=== PATIENT | male | born 1990 | race Caucasian/White ===

== ENCOUNTER 2020-07-01 16:19 | Emergency (ER) | payer OTHER ==
[~2020-07-01] VITALS: Ht 165.1 cm; Wt 83.9 kg
[2020-07-01] MEDS ORDERED: IBUPROFEN 800800 M1 PO (17:46)
[2020-07-01] MEDS ORDERED: ZANAFLEX4 MG PO (17:46)
[2020-07-01] MEDS ORDERED: TESSALON PERLE100 MG PO (17:46)
[2020-07-01 18:16] VITALS: BP 135/85
== END 2020-07-01 18:16 | disposition home or self-care (01) ==
LOC: M.ERS 16:19
DX: M94.0 Chondrocostal junction syndrome [Tietze] (principal)